=== PATIENT | male | born 1965 | race Caucasian/White ===

== ENCOUNTER 2018-09-20 08:13 | Day surgery (SDC) | payer OTHER ==
[~2018-09-20] VITALS: Ht 170.2 cm; Wt 65.0 kg
[2018-09-20] VITALS (19 sets, daily range): BP systolic 104–147; BP diastolic 63–84; PULSE 81–88; RESP 16–44; Ht 170.2 cm; Wt 65.0 kg
[2018-09-20] MEDS ORDERED: GLIP10TA14 PO (08:38)
[2018-09-20] MEDS ORDERED: METF100010 PO (08:38)
[2018-09-20] MEDS ORDERED: AMLO5TAB4 PO (08:39)
[2018-09-20] MEDS ORDERED: ENAL10TA PO (08:42)
[2018-09-20] MEDS ORDERED: ATOR10TA65 PO (08:42)
--- NOTE | 2018-09-20 09:52 | PREAC ---
Date/Time of Note Date/Time of Note DATE: 09/20/18 TIME: 09:50 Anesthesia Eval and Record Evaluation Time Pre-Procedure Interview DATE: 09/20/18 TIME: 09:50 Age 53 Sex male NPO: 8 hrs Preoperative diagnosis COUGH, HIV + Planned procedure BRONCHOSCOPY, LAVAGE, BIOPSY Past Medical History Past Medical History: Includes Cardio: HTN Endo: Diabetes Pulm: Smoking Hx (QUIT 1 YEAR AGO) Infection(s): HIV Surgery & Anesthesia Issues No known issue Meds Anticoagulation: No Beta Loren within 24 hr: No Reason Beta Loren not given: Pt. not on B-Loren Reported Medications Atorvastatin Calcium (Atorvastatin Calcium) 10 Mg Tablet, 10 MG PO QHS, #30 TAB 09/20/18 Enalapril Maleate* (Enalapril Maleate*) 10 Mg Tablet, 10 MG PO DAILY, TAB 09/20/18 Amlodipine Besylate* (Norvasc*) 5 Mg Tablet, 5 MG PO DAILY, TAB 09/20/18 Glipizide* (Glipizide*) 10 Mg Tablet, 10 MG PO AC BREAKFAST, TAB 09/20/18 Metformin Hcl* (Metformin Hcl*) 1,000 Mg Tablet, 1000 MG PO WITH BREAKFAST DINNE, #60 TAB 09/20/18 Meds reviewed: Yes Allergies Coded Allergies: No Known Allergy (Unverified , 09/20/18) Allergies Reviewed: Yes Labs/Studies Labs Reviewed: Reviewed by anesthesiologist test: N/A Studies: ECG Pre-procedure Exam Last vitals Vital Signs Date Temp Pulse Resp B/P (MAP) Pulse Ox O2 O2 Flow FiO2 Time Delivery Rate 09/20/18 98.1 83 16 134/70 98 Room Air 09:12 (91) Airway: Adequate mouth opening, Adequate thyromental dist Mallampati: Mallampati II Teeth: Normal (DENTURES) Lung: Normal Heart: Normal ASA Physical Status ASA physical status: 3 Emergency: None Planned Anesthetic General/MAC: ETT Planned Pain Management Parenteral pain med, Local by surgeon Pre-operative Attestations Prior to commencing anesthesia and surgery, the patient was re-evaluated, there was verification of: *The patient's identity *The results of appropriate recent lab work and preoperative vital signs *The above evaluation not changing prior to induction *Anesthetic plan, risk benefits, alternative and complications discussed with patient/family; questions answered; patient/family understands, accepts and wish es to proceed. MAYO CREWS Sep 20, 2018 09:52
[2018-09-20] MEDS ORDERED: LIDOCAINE 1% (MPF) 30 ML INJ ONE (09:54)
[2018-09-20] MEDS ORDERED: ONDANSETRON 4 MG INJ ONE (09:57)
[2018-09-20] MEDS ORDERED: FAMOTIDINE 20 MG INJ ONE (09:57)
[2018-09-20] MEDS ORDERED: PROPOFOL 20 ML ONE (09:57)
[2018-09-20] MEDS ORDERED: LIDOCAINE 2% (SDV) 5 ML INJ ONE (09:57)
[2018-09-20] MEDS ORDERED: METOCLOPRAMIDE 10 MG INJ ONE (09:57)
[2018-09-20] MEDS ORDERED: SUCCINYLCHOLINE CHLORIDE 100 MG/5 ML SYG IV ONE (09:57)
[2018-09-20] MEDS ORDERED: LABETALOL HCL 20MG INJ IV PRN (10:00)
[2018-09-20] MEDS ORDERED: OXYCODONE/ACETAMINOPHEN (5/325) TAB PO PRN ×2 (10:00)
[2018-09-20] MEDS ORDERED: ONDANSETRON 4 MG INJ IV PRN (10:00)
[2018-09-20] MEDS ORDERED: MEPERIDINE 25 MG INJ IV PRN (10:00)
[2018-09-20] MEDS ORDERED: RACEPINEPHRINE 2.25%(NEB) 0.5 ML AMP HHN ONE (10:00)
[2018-09-20] MEDS ORDERED: FENTAnyl 50 MCG/ML VIAL IV PRN ×3 (10:00)
--- NOTE | 2018-09-20 10:10 | HPN ---
Date/Time of Note Date/Time of Note DATE: 09/20/18 TIME: 10:10 Interval H&P Admission Note Pt. seen H&P reviewed: No system changes MAGDALENE TOM MD, [facility] Sep 20, 2018 10:10
[2018-09-20] MEDS ORDERED: LABETALOL HCL 20MG INJ ONE (10:20)
[2018-09-20] MEDS ORDERED: FENTAnyl 50 MCG/ML VIAL ONE (10:30)
--- NOTE | 2018-09-20 11:02 | PAC ---
Date/Time of Note Date/Time of Note DATE: 09/20/18 TIME: 11:01 Post-Anesthesia Notes Post-Anesthesia Note Last documented vital signs bp 145/87 HR 88 SPO2 99% RR 20 TEMP 97.8 Vital Signs Date Temp Pulse Resp B/P (MAP) Pulse Ox O2 O2 Flow FiO2 Time Delivery Rate 09/20/18 98.1 83 16 134/70 98 Room Air 09:12 (91) Activity: WNL Respiratory function: WNL Cardiovascular function: WNL Mental status: Baseline Pain reasonably controlled: Yes Hydration appropriate: Yes Nausea/Vomiting absent: Yes MAYO CREWS Sep 20, 2018 11:02
--- NOTE | 2018-09-20 11:13 | OPR ---
Date/Time of Note Date/Time of Note DATE: 09/20/18 TIME: 11:04 Operative Report Procedure Date: Sep 20, 2018 Preoperative Diagnosis Pneumonia right upper lobe and right lower lobe Postoperative Diagnosis As above Operation/Procedure Performed Bronchoscopy with lavage and biopsy Surgeon see signature line Watch Parts Inspector None Anesthesia Type: general Estimated Blood Loss: minimal Transfusion none Specimen transbronchial biopsies right lower lobe bronchoalveolar lavage right lower lobe. Grafts/Implants none Complications none Pt Condition Post Procedure: stable Disposition: PACU Procedure Description Patient was intubated sedated placed on mechanical ventilation pulse oximetry EKG vital signs monitored by anesthesia. Possible fiberoptic bronchoscope was passed through the endotracheal tube to the level of the isabel. Left lung was then entered and inspected. All airways were noted to be patent mucosa was normal. Right lung was then entered and examined in detail. Mucosa of the right upper lobe was noted to be abnormal with cobblestoning and narrowing. Right lower lobe was then examined in detail and mucosa was also noted to be edematous somewhat friable and narrowing of superior segment noted. Trans-bronchial biopsies were performed in the right lower lobe as well as br onchoalveolar lavage. Specimens collected for cytology pathology microbiology AFB Gram stain and culture and fungal stains and culture. Patient was transferred to PACU post procedure anticipate discharge today follow-up as an outpatient. MAGDALENE TOM MD, [facility] Sep 20, 2018 11:13
== END 2018-09-20 13:49 | disposition home or self-care (01) ==
LOC: SDS 08:13
PROVIDERS: ATTEND Internal Medicine Pulmonary Disease
DX: J18.9 Pneumonia, unspecified organism (principal); I10 Essential (primary) hypertension; E11.9 Type 2 diabetes mellitus without complications; Z87.891 Personal history of nicotine dependence
CPT/HCPCS: 31625; 71045; 82962; 87070; 87102; 87116; 88104; 88107; 88305; 88312; 94664; J2405; J2765; J3010; Z7512; Z7610